=== PATIENT | female | born 1960 | race Caucasian/White ===

== ENCOUNTER 2021-08-29 14:10 | Outpatient (REF) | payer MEDICAID, SELFPAY ==
--- NOTE | ~2021-08-29 | MM_ITS ---
EXAMINATION: MM SCREENING DIGITAL BREAST TOMOSYNTHESIS, BILATERAL CLINICAL INFORMATION: Screening. Asymptomatic. The lifetime risk of breast cancer based on the Tyrer-Cuzick Model is 6%. COMPARISON: Mammography: 06/28/2020, 06/17/2020, 01/20/2019, 12/20/2017 TECHNIQUE: Digital breast tomosynthesis is performed in both the craniocaudal and mediolateral oblique views along with computer-aided detection (CAD). Synthesized 2D images are generated from the tomosynthesis. FINDINGS: There are scattered areas of fibroglandular density (ACR BI-RADS breast composition Category b). There are no significant masses, abnormal calcifications, or other abnormalities. Parenchymal pattern is similar to prior studies. No developing density. The skin contours are smooth. MM/MM tomosynthesis screening BI IMPRESSION: No mammographic evidence of malignancy. ASSESSMENT: BI-RADS 1: Negative RECOMMENDATION: Routine annual mammography screening. This patient's information was entered into a reminder system with a target due date for their next mammogram.
== END 2021-08-29 14:11 | disposition home or self-care (01) ==
LOC: HO.MAMMO 14:10
PROVIDERS: Visit Provider Internal Medicine
DX: Z12.31 Encounter for screening mammogram for malignant neoplasm of breast (principal)
CPT/HCPCS: 77063; 77067

== ENCOUNTER 2022-09-02 07:46 | Outpatient (REF) | payer MEDICAID, SELFPAY ==
--- NOTE | ~2022-09-02 | MM_ITS ---
EXAMINATION: MM SCREENING DIGITAL BREAST TOMOSYNTHESIS, BILATERAL CLINICAL INFORMATION: Screening. Asymptomatic. The lifetime risk of breast cancer based on the Tyrer-Cuzick Model is 5%. COMPARISON: Mammography: 08/29/2021, 06/28/2020, 06/17/2020, 01/20/2019 TECHNIQUE: Digital breast tomosynthesis is performed in both the craniocaudal and mediolateral oblique views along with computer-aided detection (CAD). Synthesized 2D images are generated from the tomosynthesis. FINDINGS: There are scattered areas of fibroglandular density (ACR BI-RADS breast composition Category b). There are no significant masses, abnormal calcifications, or other abnormalities. Parenchymal pattern is similar to prior studies and there is no developing density or architectural abnormality. No significant changes. MM/MM tomosynthesis screening BI IMPRESSION: No mammographic evidence of malignancy. ASSESSMENT: BI-RADS 1: Negative RECOMMENDATION: Routine annual mammography screening. This patient's information was entered into a reminder system with a target due date for their next mammogram.
== END 2022-09-02 07:47 | disposition home or self-care (01) ==
LOC: HO.MAMMO 07:46
PROVIDERS: Visit Provider Internal Medicine
DX: Z12.31 Encounter for screening mammogram for malignant neoplasm of breast (principal)
CPT/HCPCS: 77063; 77067

== ENCOUNTER 2023-11-29 11:18 | Outpatient (REF) | payer MEDICARE, SELFPAY | END 2023-11-29 11:19 | disposition home or self-care (01) | LOC: HO.MAMMO 11:18 | PROVIDERS: PCP Internal Medicine; Visit Provider Internal Medicine | DX: Z12.31 Encounter for screening mammogram for malignant neoplasm of breast (principal) | CPT/HCPCS: 77063; 77067 ==

== ENCOUNTER → 2023-11-29 11:30 | Outpatient (BNV) | payer MEDICARE, SELFPAY | PROVIDERS: PCP Internal Medicine; Visit Provider Radiology Diagnostic Radiology | DX: Z12.31 Encounter for screening mammogram for malignant neoplasm of breast (principal) | CPT/HCPCS: 77063; 77067 ==

== ENCOUNTER 2024-01-17 08:50 | Outpatient (REF) | payer MEDICARE, SELFPAY ==
[2024-01-17 14:09] LABS: MANUAL DIFF FLAG NO
[2024-01-17 14:11] LABS: Basophils Absolute Auto 0.1 X10*3/uL (0.0-0.2); Basophils Percent Auto 1.1 % (0-2); Eosinophils Absolute Auto 0.2 X10*3/uL (0.0-0.4); Eosinophils Percent Auto 4.4 % (0-4); Hematocrit 41.7 % (37.0-47.0); Imm Gran Abs Auto 0.01 X10*3/uL (0.00-0.03); Imm Gran Pct Auto 0.2 % (0.0-0.4); Lymphocytes Absolute Auto 2.4 X10*3/uL (1.2-4.9); Lymphocytes Percent Auto 44.7 % (20-40); Mean Corpuscular HGB Conc 33.6 g/dl (31.0-35.0); Mean Corpuscular Hemoglobin 29.8 pg (27.0-33.0); Mean Corpuscular Volume 88.7 fL (80.0-98.0); Mean Platelet Volume 10.5 fL (9.4-12.3); Monocytes Absolute Auto 0.4 X10*3/uL (0.1-1.2); Monocytes Percent Auto 8.1 % (2-11); Neutrophils Absolute Auto 2.3 x10*3/uL (2.0-8.3); Neutrophils Percent Auto 41.5 % (45-73); Platelet Count 270 X10*3/uL (160-400); White Blood Count 5.4 X10*3/uL (4.8-10.8)
[2024-01-17 14:28] LABS: Alanine Aminotransferase 23 U/L (0-31); Albumin Level 4.3 g/dL (3.5-5.0); Alkaline Phosphatase 80 U/L (39-117); Anion Gap 10 (12-20); Aspartate Amino Transferase 24 U/L (5-31); Bilirubin Total 0.6 mg/dL (0.0-1.0); Blood Urea Nitrogen 14 mg/dL (9-16); Calcium 9.6 mg/dL (8.4-10.2); Carbon Dioxide 28 mmol/L (22-29); Chloride 105 mmol/L (96-108); Cholesterol 175 mg/dL (<200); Estimated Glomerular Filt Rate > 60; Glucose Random 85 mg/dL (60-115); HDL Cholesterol 63 mg/dL (>40); LDL Cholesterol Calculated 95 mg/dL (<100); Potassium 3.6 mmol/L (3.3-5.1); Sodium 139 mmol/L (135-145); Total Protein 7.7 g/dL (6.5-8.0); Triglycerides 89 mg/dL (<150)
== END 2024-01-17 08:51 | disposition home or self-care (01) ==
LOC: HO.CHCLDS 08:50
PROVIDERS: Visit Provider Internal Medicine
DX: M85.80 Other specified disorders of bone density and structure, unspecified site (principal); E78.2 Mixed hyperlipidemia
CPT/HCPCS: 36415; 80053; 80061; 84443; 85025

== ENCOUNTER 2024-12-11 10:58 | Outpatient (REF) | payer MEDICARE, SELFPAY ==
--- NOTE | ~2024-12-11 | MM_ITS ---
EXAMINATION: DXA BONE DENSITY AXIAL HISTORY: Estrogen deficiency TECHNIQUE: Jymob Dual energy absorptiometry (DEXA) of the lumbar spine, total left hip, and femoral neck was performed. COMPARISON: Comparison is made with the prior examination dated 03/13/2019. FINDINGS: The bone mineral density of the lumbar spine is 0.998 with a T-score of -1.5, and a Z-score of -0.1. This represents a BMD change of -7.3% compared to the prior exam. This is statistically significant. The bone mineral density of the left total hip is 0.910 with a T-score of -0.8, and a Z-score of 0.4. This represents BMD change of -9.0% compared to the prior exam. This is statistically significant. The bone mineral density of the left femoral neck is 0.857 with a T-score of -1.3, and a Z-score of 0.1. This represents BMD change of -7.5% compared to the prior exam. FRACTURE RISK: The FRAX index suggests a ten year probability of major osteoporotic fracture of 8.8%, and of hip fracture 0.9%. MM/XR DEXA axial skeleton IMPRESSION: Based on bone mineral density, and according to World Health Organization (WHO) criteria, the diagnosis is consistent with osteopenia. All bone density values are in grams per centimeter squared (g/cm2). Statistically, 68% of repeat scans fall within 1 SD (+/- 0.010 g/cm2 for AP spine L1-L4) and 1 SD (+/- 0.012 g/cm2 for femur total) FRAX is a trademark of the [employer]'s [employer] Metabolic Bone Disease, a World Health Organization (WHO) Collaborating Center. Electronically signed by: Stefan Fleming MD 12/11/2024 01:13 PM [facility]
--- NOTE | ~2024-12-11 | MM_ITS ---
EXAMINATION: MM SCREENING DIGITAL BREAST TOMOSYNTHESIS, BILATERAL CLINICAL INFORMATION: Screening. Asymptomatic. COMPARISON: Mammography: Comparison is made with available priors TECHNIQUE: Digital breast mammography with tomosynthesis is performed in both the craniocaudal and mediolateral oblique views along with computer-aided detection (CAD). FINDINGS: There are scattered areas of fibroglandular density (ACR BI-RADS breast composition Category b). There are no significant masses, abnormal calcifications, or other abnormalities. MM/MM tomosynthesis screening BI IMPRESSION: No mammographic evidence of malignancy. ASSESSMENT: BI-RADS BI-RADS 1 - Negative RECOMMENDATION: Routine annual mammography screening. 1 year F/U This examination should not preclude the clinical evaluation of a suspicious palpable abnormality. This patient's information was entered into a reminder system with a target due date for their next mammogram. Electronically signed by: Abigail Evans DO 12/14/2024 06:30 PM [facility]
--- OUTSIDE RECORDS SUMMARY | 2024-12-11 13:05 | XMS_ITS | Encounter Summary ---
Author Organization [facility] Address [address] [place] [address] Care Team Providers Care Building Maintenance Engineer Name Role Phone Javan Rogers MD Primary Care Provider [phone] Encounter Details Date Type Department Care Team (Latest Contact Info) Description 08/31/2020 Abstract [facility] CONVERSIONS Dental, Provider, DDS Social History Tobacco Use Types Packs/Day Years Used Date Smoking Tobacco: Never Assessed Comments Unknown Sex and Gender Information Value Date Recorded Sex Assigned at Female 08/14/2022 10:14 AM EDT Legal Sex Female 10:14 AM EDT Gender Identity Female 08/14/2022 10:14 AM EDT Sexual Orientation Straight 08/14/2022 10 :14 AM EDT documented as of this encounter Plan of Treatment Upcoming Encounters Date Type Department Care Team (Late st Contact Info) Description 12/25/2024 11:30 AM EDT Procedure Visit [facility] CHC MED & PEDS [address] [place] [address] Marianne Garcia, CRISTOBALM [address] [place] [address] documented as of this encounter Visit Diagnoses Not on filedocumented in this encounter Care Teams Building Maintenance Engineer Relationship Specialty Start Date End Date Javan Rogers MD [address] [place] [address] PCP - General Internal Medicine 12/13/23 documented as of this encounter
--- OUTSIDE RECORDS SUMMARY | 2024-12-11 13:05 | XMS_ITS | Encounter Summary ---
Author Organization [employer] Address [address] [place] [address] Care Team Providers Care File Clerk Name Role Phone Javan Rogers MD Primary Care Provider [phone]- [phone] Encounter Details Date Type Department Care Team (Latest Contact Info) Description 02/18/2019 Abstract [facility] CONVERSIONS Dental, Provider, DDS Social History [...] Description 12/25/2024 11:30 AM EDT Procedure Visit [facility] CHC MED & PEDS [address] [place] [address] Marianne Garcia, CRISTOBALM [address] [place] [address] documented as of this encounter Visit Diagnoses Not on filedocumented in this encounter Care Teams File Clerk Relationship Specialty Start Date End Date Javan Rogers MD [address] [place] [address] PCP - General Internal Medicine 12/13/23 documented as of this encounter
--- OUTSIDE RECORDS SUMMARY | 2024-12-11 13:05 | XMS_ITS | Clinical Summary ---
Author Organization [facility] Address [address] [place] [address] [address] [place] [address] Care Team Providers Care Senior Product Development Engineer Name Role Phone Javan Rogers MD Primary Care Provider Allergies No known active allergies Medications atorvastatin (Lipitor) 40 MG tablet TAKE 1 TABLET BY MOUTH IN THE MORNING 90 tablet 4 Active Calcium Carb-Cholecalc iferol 500-10 MG-MCG tablet TAKE 1 TABLET BY MOUTH AT BEDTIME 90 tablet 5 Active Calcium Carb-Cholecalc iferol 500-10 MG-MCG tablet Take 1 tablet by mouth at bedtime. 90 tablet 4 11/28/19 25 Discontinued Active Problems Problem Noted Date Diagnosed Date Acute pain of left shoulder 08/07/2023 Assessment & Plan (08/07/2023 2:39 PM EDT): Patient had decrease range of motion upon examination, will send for X-Ray. Will be referred to Physical Therapy. Neck pain on left side 08/07/2023 Assessment & Plan (08/07/2023 2:39 PM EDT): Recommended to preform exercises at home, and treat discomfort with OTC Tylenol. Will be referred to Physical Therapy. Mixed hyperlipidemia 12/01/2022 Assessment & Plan (12/01/2022 10:54 AM EST): Patient on atorvastatin 40mg, no reported side effects from medication, will order new labs for guidance of therapy Menopause 12/01/2022 Assessment & Plan (12/01/2022 10:55 AM EST): Will order dexa scan for evaluation of osteoporosis Chronic pain of right upper extremity 02/24/2019 08/07/2023 Osteopenia determined by x-ray 07/22/2018 1 Encounters Date Type Department Care Team Description 11/27/2024 Refill [facility] [address] [place] [address] Javan Rogers MD 10/24/2024 Travel 10/07/2024 Refill [facility] [address] [place] [address] Javan Rogers MD from Last 3 Months Immunizations Name Administration Dates Next Due Pneumococcal Polysaccharide PPSV23 03/19/2014 Tdap 03/19/2014 Zoster, Recombinant 08/13/2019,06/11/2019 Social History Tobacco Use Types Packs/Day Years Used Date Smoking Tobacco: Never Passive Smoke Exposure: Never Smokeless Tobacco: Never Tobacco Cessation:Counseling Given: Not Answered Alcohol Use Standard Drinks/Week Comments Never 0 (1 standard drink = 0.6 oz pur e alcohol) Depression Answer Date Recorded Patient Health Questionnaire-9 Score 0 12/01/2022 Housing Stability Answer Date Recorded What is your housing situation today? I have jenimanolo joshi 08/07/[address] you li ve. Do you have problems with any of the following? None of the above 08/07/2023 Food Insecurity Answer Date Recorded Within the past 12 months, y ou worried that your food would run out before you got money to buy more: Never True 08/07/2023 Within the past 12 months,th e food you bought just didn't last and you didn't have enough money to get more: Never True Transportation Answer Date Recorded In the past 12 months, has l ack of transportation kept you from medical appts, meetings, work or from getting things needed for daily living? No 08/07/2023 Utilities Answer Date Recorded In the past 12 months, has t he electric, gas, oil or water company threatened to shut off services in your home? No 08/07/2023 Depression Answer Date Recorded Patient Health Questionnaire-2 Score 0 12/01/2022 Comments No Sex and Gender Information Value Date Recorded Sex Assigned at Female 08/14/2022 10:14 AM EDT Legal Sex Female 10:14 AM EDT Gender Identity Female 08/14/2022 10:14 AM EDT Sexual Orientation Straight 08/14/2022 10 :14 AM EDT Last Filed Vital Signs Vital Sign Reading Time Taken Comments Blood Pressure 120/66 05/13/2024 8:57 AM EDT Pulse 65 05/13/2024 8:57 AM EDT Temperature 36.3 ??C (97.3 ??F) 12/25/2023 2:17 PM ED T Respiratory Rate 16 12/25/2023 2:17 PM EDT Oxygen Saturation 99% 12/25/2023 2:17 PM EDT Inhaled Oxygen Concentration - - Weight 67.8 kg (149 lb 6.4 oz) 12/25/2023 2:17 P M EDT Height 160 cm (5' 3 ) 12/25/2023 2:17 PM EDT Body Mass Index 26.47 12/25/2023 2:17 PM EDT Plan of Treatment Upcoming Encounters Date Type Department Care Team (Late st Contact Info) Description 12/25/2024 11:30 AM EDT Procedure Visit [facility] CHC MED & PEDS [address] [place] [address] Marianne Garcia, CNM [address] [place] [address] Health Maintenance Due Date Last Done Comments CT Colonography 1958 FIT DNA/Cologuard 1958 FIT 1958 FOBT 1960 Sigmoidoscopy 1958 Alcohol/Substance Use Screening 1970 Depression Screening 12/01/2023 12/01/2022, 12/01/19 23 SDOH Screening 12/01/2023 12/01/2022 DTaP/Tdap/Td Vaccines (2 - Td or Tdap) 03/19/2024 03/19/2014 COVID-19 Vaccine ( season) 2024 Influenza Vaccine (#1) 2024 Dental Oral Exam 11/14/2024 05/13/2024, 05/24/2023 Dental Prophylaxis 11/14/2024 05/13/2024, 0 05/24/2023, 10/27/2022 Pneumococcal Vaccine: 50+ Years (2 of 2 - PCV) 12/12/2024 03/19/2014 Postponed from 03/19/2015 (Patient Refused) Tobacco Screening 05/13/2025 05/13/2024 Dental X-Ray: Bitewings 05/14/2025 05/13/2024, 05/24 Mammogram 11/29/2025 11/29/2023, 08/15, 08/29/2021, Additional history exists Dental X-Ray: Full Mouth 05/25/2026 05/24/2023 HPV/Cotest 04/25/2027 04/25/2022, 04/29/2019 Pap Smear 04/25/2027 04/25/2022 Colonoscopy 06/24/2030 06/24/2020 Colorectal Cancer Screening 06/24/2030 RSV Patients and Patients Aged 60 years or older (1 - 1-dose 75+ series) 2033 Zoster Vaccines Completed 08/13/2019, 06/11/2019 Hepatitis C Screening Completed 01/11/2023, 019 HIB Vaccines Aged Out No longer eligi ble based on patient's age to complete this topic HPV Vaccines Aged Out No longer eligi ble based on patient's age to complete this topic Hepatitis A Vaccines Aged Out No long er eligible based on patient's age to complete this topic Hepatitis B Vaccines Aged Out No long er eligible based on patient's age to complete this topic IPV Vaccines Aged Out No longer eligi ble based on patient's age to complete this topic Meningococcal Vaccine Aged Out No marti he eligible based on patient's age to complete this topic RSV under 20 months Aged Out No longe r eligible based on patient's age to complete this topic Rotavirus Vaccines Aged Out No longer eligible based on patient's age to complete this topic Procedures Procedure Name Priority Date/Time Associated Diagnosis Comments PROPHYLAXIS - ADULT Routine 05/13/2024 9 :00 AM EDT BITEWING - SINGLE RADIOGRAPHIC IMAGE Routine 05/13/2024 9:00 AM EDT PERIODIC ORAL EVALUATION - ESTABLISHED PATIENT Routine 05/13/2024 9:00 AM EDT BI MAMMOGRAM SCREENING TOMOSYNTHESIS BILATERAL Routine 11/29/2023 11:38 AM EST INTRAORAL - COMPLETE SERIES OF RADIOGRAPHIC IMAGES Routine 05/24/2023 8:00 AM EDT HEPATITIS C AB W/REFL TO HCV RNA, QN, PCR Routine 01/11/2023 9:21 AM EDT Mixed hyperlipidemia THINPREP IMAGING PAP AND HPV MRNA E6/E7 WITH REFLEX TO HPV 16,18/45 Routine 04/25/2022 9:37 AM EDT COLONOSCOPY Routine 06/24/2020 from Last 3 Months or Most Recently Relevant to Health Maintenance Results * BI Mammogram Screening Tomosynthesis Bilateral (11/29/2023 11:38 AM EST) Anatomical Region Laterality Modality Breast Bilateral Mammography 11/29/2023 11:3 8 AM EST Narrative 12/23/2023 9:12 AM EDT ? [facility] ? [address] ?[place] [address] ? Mammography Report ? Signed ? Patient: Petrolia,Ariana L ?MR#: [id number] ?? 87 ? : 1960 ?Acct:[id number] ? Age/Sex: 63 / F ?ADM Date: 02/15/24 ? Loc: HO.MAMMO ? Attending Dr: Elijah Landers MD ? Ordering Physician: Elijah Claire MD ?Res ?? ults: 1Negative ? Date of Service: 11/29/23 ?Follow Up: 1 Year From Orig ?? inal Mammogram ? Procedure(s): MM tomosynthesis screening BI ?? Accession Number(s): [id number] ? cc: Elijah Claire MD ? EXAMINATION: ?? MM SCREENING DIGITAL BREAST TOMOSYNTHESIS, BILATERAL ? CLINICAL INFORMATION: ? Screening. Asymptomatic. ? COMPARISON: ?? Mammography: This study is compared with prior exams dating back to ?? 2018. ? TECHNIQUE: ?? Digital breast tomosynthesis is performed in both the craniocaudal and ?? mediolateral oblique views along with computer-aided detection (CAD). ?? Synthesized 2D images are generated from the tomosynthesis. ? FINDINGS: ?? There are scattered areas of fibroglandular density (ACR BI-RADS breast ?? composition Category b). ? There are no significant masses, abnormal calcifications, or other ?? abnormalities. ? MM/MM tomosynthesis screening BI ?? IMPRESSION: ?? No mammographic evidence of malignancy. ? ASSESSMENT: ? BI-RADS BI-RADS 1 - Negative ? RECOMMENDATION: ?? Routine annual mammography screening. ? 1 year F/U ? This examination should not preclude the clinical evaluation of a ?? suspicious palpable abnormality. ? This patient's information was entered into a reminder system with a ?? target due date for their next mammogram. ? Dictated By: ?Yelitza Vargas MD ? Signed By: ?<Electronically signed by Yelitza Vargas MD in OV> ? 12/23/23 0907 ? DD/ 1138 ? TD/TT: ? Forestry Patrolman: ? Procedure Note [facility] - 12/23/2023 [facility] [address] [place] [address] Dr. Fuentes, KELLY [address] Mammography Report Signed Patient: Ariana Workman LMR#: [id number] : 8Acct:[id number] Age/Sex: 63 / FADM Date: 11/29/23 Loc: HO.MAMMO Attending Dr: Elijah Landers MD Ordering Physician: Elijah Claire ults: 1Negative Date of Service: 11/29/23Follow Up: 1 Year From Orig inal Mammogram Procedure(s): MM tomosynthesis screening BI Accession Number(s): [id number] cc: Elijah Claire MD EXAMINATION: MM SCREENING DIGITAL BREAST TOMOSYNTHESIS, BILATERAL CLINICAL INFORMATION: Screening. Asymptomatic. COMPARISON: Mammography: This study is compared with prior exams dating back to 2018. TECHNIQUE: Digital breast tomosynthesis is performed in both the craniocaudal and mediolateral oblique views along with computer-aided detection (CAD). Synthesized 2D images are generated from the tomosynthesis. FINDINGS: There are scattered areas of fibroglandular density (ACR BI-RADS breast composition Category b). There are no significant masses, abnormal calcifications, or other abnormalities. MM/MM tomosynthesis screening BI IMPRESSION: No mammographic evidence of malignancy. ASSESSMENT: BI-RADS BI-RADS 1 - Negative RECOMMENDATION: Routine annual mammography screening. 1 year F/U This examination should not preclude the clinical evaluation of a suspicious palpable abnormality. This patient's information was entered into a reminder system with a target due date for their next mammogram. Dictated By: Yelitza Vargas MD Signed By: <Electronically signed by Yelitza Vargas MD in OV> 12/23/23 0907 DD/ 1138 TD/TT: Forestry Patrolman: Elijah Landers MD IM BI PROCEDURES Edited Result - Final * Hepatitis C Antibody with Reflex to HCV, RNA, Quantitative, Real-Time PCR (01/11/2023 9:21 AM EDT) Hepatitis C Antibody NON-REACT CINTHYA NON-REACT CINTHYA [employer] Index 0.02 <1.00 [facility] Comment: HCV antibody was non-reactive. There is no laboratory evidence of HCV infection. In most cases, no further action is required. However, if recent HCV exposure is suspected, a test for HCV RNA (test code 53163) is suggested. For additional information please refer to http://education.Morning Tec/faq/FFB96z0 (This link is being provided for informational/ educational purposes only.) Blood Venous blood specimen / Unknown 01/11/2023 9:21 AM EDT 01/11/2023 9:22 AM EDT Narrative [facility] - 01/14/2023 2:14 AM EDT FASTING:YES FASTING: YES Elijah Landers MD LAB BLOOD ORDERABL ES Final Result [facility] [address] [place] [address], [place] [address] [facility] [address] [place] [id number] * THINPREP TIS PAP AND HPV mRNA E6/E7 WITH REFLEX TO HPV 16,18/45 (04/25/2022 9:37 AM EDT) Clinical Information: None given [facility] COMMENT SEE COMMENT [facility] Comment: EXPLANATORY NOTE: ? The Pap is a screening test for cervical cancer. It is ?? not a diagnostic test and is subject to false negative ?? and false positive results. It is most reliable when a ?? satisfactory sample, regularly obtained, is submitted ?? with relevant clinical findings and history, and when ?? the Pap result is evaluated along with historic and ?? current clinical information. ?? COMMENT: SEE [facility] Comment: This case could not be evaluated with computer assisted technology. The slide was manually screened according to routine procedures. Industrial Garage Servicer: SEE COMMENT [facility] Comment: WAC, CT(ASCP) CT screening location: [address] ??[address] HPV nRNA E6/E7 Not Detected Not Detected [facility] Comment: Methodology: Manager Video [employer]-Mediated Amplification This assay detects E6/E7 viral messenger RNA (mRNA) from 14 high-risk HPV types (16,18,31,33,35,39,45,51,52,56,58,59,66,68). ? Cervical sources are required for HPV testing. If a vaginal source from a patient who has had a total hysterectomy with removal of cervix was ?? submitted, please contact the testing laboratory for alternative testing options. ?? For additional information, please refer to http://education.Morning Tec/faq/HNO191o5 (This link if provided for information/ educational purposes only.) Interpretation/Res ult: SEE COMMENT [facility] Comment: Negative for intraepithelial lesion or malignancy. Atrophic pattern; predominantly parabasal cells LMP: [facility] Prev. BX: NONE GIVEN [facility] Prev. PAP: 2019 NIL/NEG [facility] SOURCE: None given [facility] Statement Of Adequacy: SATISFACTORY FOR EVALUATION [facility] 04/25/2022 9:37 AM EDT Marianne Garcia CNM LAB PATHOLOGY ORDERABLES Final Result [facility] [address] * Colonoscopy (06/24/2020) Anatomical Region Laterality Modality Endoscopy Narrative 06/24/2020 Normal except for Internal hemorrhoids. us Historical Provider ENDOSCOPY PROCEDURE ORDER FIONA Edited Result - Final from Last 3 Months or Most Recently Relevant to Health Maintenance Insurance MEDICARE HSN FULL DENTAL - HSN FULL (MEDICAID) Care Teams Senior Product Development Engineer Relationship Specialty Start Date End Date Javan Rogers MD [address] [place] [address] PCP - General Internal Medicine 12/13/23
--- OUTSIDE RECORDS SUMMARY | 2024-12-11 13:05 | XMS_ITS | Encounter Summary ---
Author Organization [employer] Address [address] [place] [address] [address] [place] [address] Care Team Providers Care Concrete Building Assembler Name Role Phone Javan Rogers MD Primary Care Provider [phone] Reason for Visit * Reason Comments Med Refill Encounter Details Date Type Department Care Team ([facility] st Contact Info) Description 11/27/2024 Refill [facility] CH[facility] MED & PEDS [address] [place] [address] Javan Rogers MD [address] [place] [address] Social History Tobacco Use Types Packs/Day Years Used Date Smoking Tobacco: Never Passive Smoke Exposure: Never Smokeless Tobacco: Never Alcohol Use Standard Drinks/Week Comments Never 0 (1 standard drink = 0.6 oz pur e alcohol) Depression Answer Date Recorded Patient Health Questionnaire-9 Score 0 12/01/2022 Housing Stability Answer Date Recorded What is your housing situation today? I have jeni joshi 08/07/[address] you [...] Description 12/25/2024 11:30 AM EDT Procedure Visit [facility] MED & PEDS [address] [place] [address] Marianne Garcia, CNM [address] [place] [address] documented as of this encounter Visit Diagnoses Not on filedocumented in this encounter Additional Health Concerns Assessment Noted Time PHQ-9 Depression Total Score: 0 12/01/19 23 10:34 AM EST documented as of this encounter Care Teams Concrete Building Assembler Relationship Specialty Start Date End Date Javan Rogers MD [address] [place] [address] PCP - General Internal Medicine 12/13/23 documented as of this encounter
== END 2024-12-11 10:59 | disposition home or self-care (01) ==
LOC: HO.MAMMO 10:58
PROVIDERS: PCP Internal Medicine; Visit Provider Internal Medicine
DX: Z12.31 Encounter for screening mammogram for malignant neoplasm of breast (principal); Z13.820 Encounter for screening for osteoporosis; Z78.0 Asymptomatic menopausal state; M85.80 Other specified disorders of bone density and structure, unspecified site
CPT/HCPCS: 77063; 77067; 77080

== ENCOUNTER → 2024-12-11 11:00 | Outpatient (BNV) | payer MEDICARE, SELFPAY | PROVIDERS: PCP Internal Medicine; Visit Provider Radiology Diagnostic Radiology | DX: Z12.31 Encounter for screening mammogram for malignant neoplasm of breast (principal) | CPT/HCPCS: 77063; 77067 ==

== ENCOUNTER 2025-03-16 10:58 | Outpatient (REF) | payer MEDICARE, SELFPAY ==
--- OUTSIDE RECORDS SUMMARY | 2025-03-16 12:12 | XMS_ITS | Encounter Summary ---
Author Organization [employer] Address [address] [place] [address] [address] [place] [address] Care Team Providers Care Dining Room Coordinator Name Role Phone Javan Rogers MD Primary Care Provider [phone] Reason for Referral * Consultation (Routine) - Authorized Specialty Diagnoses / Procedures Referred By Contbhanu seals Referred To Contact Optometry Diagnoses Eye exam, routine Javan Rogers MD [address] [place] [address] Phone: tel: fax: [facility] OPTOMETRY [address] [place] [id number] Phone: tel: fax: Referral ID Status Reason Start Date Expiration Date Visits Requested Visits Authorized [id number] Authorized Consult and Treat 03/13/2025 03/13/2026 1 1 Reason for Visit * Reason Onset Date Comments Referral 03/13/2025 Encounter Details Date Type Department Care Team ([facility] st Contact Info) Description 03/13/2025 Telephone [facility] CHC MED & PEDS [address] [place], [place] [id number] Javan Rogers MD [address] [place], [place] [phone] Referral Social History Tobacco Use Types Packs/Day Years Used Date Smoking Tobacco: Never Passive Smoke Exposure: Never Smokeless Tobacco: Never Alcohol Use Standard Drinks/Week Comments Never 0 (1 standard drink = 0.6 oz pur e alcohol) Depression Answer Date Recorded Patient Health Questionnaire-9 Score 0 02/19/2025 Patient Health Questionnaire-9 Score 0 02/19/2025 Last PHQ-9: Questionnaire Data Not on file 0 02/19/2025 Housing Stability Answer Date Recorded What is your housing situation today? I have jeni joshi 02/12/[address] you li ve. Do you have problems with any of the following? None of the above 02/12/2025 Food Insecurity Answer Date Recorded Within the past 12 months, y ou worried that your food would run out before you got money to buy more: Never True 02/12/2025 Within the past 12 months,th e food you bought just didn't last and you didn't have enough money to get more: Never True 10/2024 Transportation Answer Date Recorded In the past 12 months, has l ack of transportation kept you from medical appts, meetings, work or from getting things needed for daily living? No 02/12/2025 Utilities Answer Date Recorded In the past 12 months, has t he electric, gas, oil or water company threatened to shut off services in your home? No 02/12/2025 Depression Answer Date Recorded Patient Health Questionnaire-2 Score 0 02/19/2025 Internet Access Answer Date Recorded Internet Access Q1 Yes 02/12/2025 Internet Access Q2 Not on file 02/12/2025 Comments No Sex and Gender Information Value Date Recorded Sex Assigned at Female 08/14/2022 10:14 AM EDT Legal Sex Female 10:14 AM EDT Gender Identity Female 08/14/2022 10:14 AM EDT Sexual Orientation Straight 08/14/2022 10 :14 AM EDT documented as of this encounter Miscellaneous Notes * Telephone Encounter - Renata Dutton RN - 03/13/2025 12:14 PM EDT Internal referral placed. * Addendum Note - Renaat Dutton RN - 03/13/2025 12:14 PM EDTAddended by: RENATA DUTTON on: 03/13/2025 12:14 PM Modules accepted: Orders * Telephone Encounter - Harshal Dumont - 03/13/2025 11:10 AM EDT Pt walked in requesting a referral to see an eye health care coach preferably ours if possible . Pt states she was seeing [facility] is no longer accepting her insurance. documented in this encounter Plan of Treatment Upcoming Encounters Date Type Department Care Team (Late st Contact Info) Description 07/10/2025 1:00 PM EDT Office Visit [facility] CHC ADULT DENTAL [address] [place] [address] Nereyda Greer Scheduled Referrals Name Type Priority Associated Diagnoses Orde r Schedule Referral to [facility] Eye Care Outpatient Referral Routine Eye exam, routine Expected: 03/13/2025 (Approximate), Expires: 03/13/2026 documented as of this encounter Visit Diagnoses Diagnosis Eye exam, routine documented in this encounter Additional Health Concerns Assessment Noted Time PHQ-9 Depression Total Score: 0 02/20/20 25 10:44 AM EDT documented as of this encounter Care Teams Dining Room Coordinator Relationship Specialty Start Date End Date Javan Rogers MD [address] [place] [address] PCP - General Internal Medicine 12/13/23 documented as of this encounter
[2025-03-16 14:19] LABS: MANUAL DIFF FLAG NO
[2025-03-16 14:27] LABS: Basophils Absolute Auto 0.1 X10*3/uL (0.0-0.2); Basophils Percent Auto 0.8 % (0-2); Eosinophils Absolute Auto 0.2 X10*3/uL (0.0-0.4); Eosinophils Percent Auto 3.5 % (0-4); Hematocrit 40.6 % (37.0-47.0); Hemoglobin 13.4 g/dl (12.0-16.0); Imm Gran Abs Auto 0.02 X10*3/uL (0.00-0.03); Imm Gran Pct Auto 0.3 % (0.0-0.4); Lymphocytes Absolute Auto 3.1 X10*3/uL (1.2-4.9); Lymphocytes Percent Auto 48.7 % (20-40); Mean Corpuscular Hemoglobin 29.3 pg (27.0-33.0); Mean Corpuscular Volume 88.8 fL (80.0-98.0); Mean Platelet Volume 10.3 fL (9.4-12.3); Monocytes Absolute Auto 0.4 X10*3/uL (0.1-1.2); Monocytes Percent Auto 6.6 % (2-11); Neutrophils Absolute Auto 2.6 x10*3/uL (2.0-8.3); Neutrophils Percent Auto 40.1 % (45-73); Platelet Count 275 X10*3/uL (160-400); Red Blood Count 4.57 X10*6/uL (4.20-5.50); Red Cell Distribution Width 13.1 % (11.0-16.0); White Blood Count 6.4 X10*3/uL (4.8-10.8)
[2025-03-16 14:50] LABS: Alanine Aminotransferase 23 U/L (0-31); Albumin Level 4.4 g/dL (3.5-5.0); Alkaline Phosphatase 68 U/L (39-117); Anion Gap 11 (12-20); Aspartate Amino Transferase 31 U/L (5-31); Bilirubin Total 0.5 mg/dL (0.0-1.0); Blood Urea Nitrogen 16 mg/dL (9-16); Calcium 9.7 mg/dL (8.4-10.2); Carbon Dioxide 29 mmol/L (22-29); Chloride 105 mmol/L (96-108); Cholesterol 162 mg/dL (<200); Estimated Glomerular Filt Rate > 60; Glucose Random 95 mg/dL (60-115); HDL Cholesterol 57 mg/dL (>40); LDL Cholesterol Calculated 89 mg/dL (<100); Potassium 3.8 mmol/L (3.3-5.1); Sodium 141 mmol/L (135-145); Total Protein 7.6 g/dL (6.5-8.0); Triglycerides 80 mg/dL (<150)
[2025-03-16 15:11] LABS: TSH reflex Free T4 1.36 uIU/mL (0.32-4.0)
== END 2025-03-16 10:59 | disposition home or self-care (01) ==
LOC: HO.CHCLDS 10:58
PROVIDERS: Visit Provider Internal Medicine
DX: E78.2 Mixed hyperlipidemia (principal); M85.80 Other specified disorders of bone density and structure, unspecified site
CPT/HCPCS: 36415; 80053; 80061; 82306; 84443; 85025